=== PATIENT | male | born 1935 | race Hispanic/Latino ===

== ENCOUNTER 2018-05-07 23:44 | Emergency (ER) | payer MEDICARE ==
[2018-05-07 23:50] VITALS: BMI 23.6
[2018-05-08] VITALS: TEMP 97.8; O2SAT 100
--- NOTE | 2018-05-08 00:11 | ED PDOC ---
Arrival/HPI - General Historian: Patient - History of Present Illness Time/Duration: 1-3 hours Symptom Onset: Sudden Symptom Course: Unchanged Quality: Stabbing Severity Level: 10 <Feliciano Webster - Last Filed: 05/08/18 03:59> <Shelby Lovell - Last Filed: 05/08/18 05:33> - General Chief Complaint: Trauma Time Seen by Provider: 05/08/18 00:03 - History of Present Illness Narrative History of Present Illness (Text): 05/08/18 00:41 Patient is a 83 year old male with PMH of CLL and bradycardia with pacemaker presenting to the ED with left elbow pain after a fall. Patient states that he missed a step going back to his car and fell on his left elbow and face. Patient states that he did not hit his head and his daughter who was right behind him also said he did not hit his head. He describes the elbow pain to be sharp, 10/10, and non-radiating. It is worse with movement and better when he does not move his arm. Patient also complains of pain on his nose. Patient is currently on eliquis. Patient denies headaches, changes in vision, neurological deficits, chest pain, shortness of breath, abdominal pain, or urinary symptoms. (Feliciano Webster) Past Medical History - Provider Review Nursing Documentation Reviewed: Yes - Travel History Have you recently traveled outside [place] w/in the past 3 mons?: No - Tetanus Immunization Tetanus Immunization: Unknown - Cardiac Hx Cardiac Disorders: Yes Hx Pacemaker: Yes (PT INSTRUCTED TO BRING HIS CARD WITH HIM) - Pulmonary Hx Respiratory Disorders: No - Neurological Hx Paralysis: No - HEENT Hx HEENT Disorder: No Hx Cataracts: Yes (b/l sx) - Renal Hx Renal Disorder: No - Endocrine/Metabolic Hx Endocrine Disorders: No - Hematological/Oncological Hx Blood Transfusions: Yes Hx Blood Transfusion Reaction: No - Integumentary Hx Dermatological Disorder: No - Musculoskeletal/Rheumatological Hx Musculoskeletal Disorders: No - Gastrointestinal Hx Gastrointestinal Disorders: No - Genitourinary/Gynecological Hx Genitourinary Disorders: Yes Hx Hematuria: Yes (S/P TURP) Hx Prostate Problems: Yes (BPH) Other/Comment: turp/ bladder stones - Psychiatric Hx Emotional Abuse: No Hx Physical Abuse: No Hx Substance Use: No - Surgical History Other/Comment: LYMPH NODE CA. SKIN GRAFTS - Anesthesia Hx Anesthesia Reactions: No Hx Malignant Hyperthermia: No - Suicidal Assessment Feels Threatened In Home Enviroment: No <Feliciano Webster - Last Filed: 05/08/18 03:59> Family/Social History - Physician Review Nursing Documentation Reviewed: Yes Family/Social History: No Known Family HX Smoking Status: Former Smoker Hx Alcohol Use: No Hx Substance Use: No <Orly Websteranni - Last Filed: 05/08/18 03:59> Allergies/Home Meds <Lana Websteri - Last Filed: 05/08/18 03:59> <Shelby Lovell - Last Filed: 05/08/18 05:33> Allergies/Adverse Reactions: Allergies No Known Allergies Allergy (Verified 05/07/18 23:48) Home Medications: Home Meds Medication Instructions Recorded Confirmed Tamsulosin [Flomax] 0.4 mg PO DAILY 10/05/12 05/07/18 Ferrous Sulfate [Feosol] 324 mg PO DAILY 05/31/15 05/07/18 Metoprolol Tartrate [Lopressor] 12.5 mg PO BID 05/31/15 05/07/18 Pantoprazole [Protonix EC Tab] 40 mg PO DAILY 05/31/15 05/07/18 Cholecalciferol (Vitamin D3) 2,000 cap PO DAILY 05/01/16 05/07/18 [Vitamin D3] metOLazone [Zaroxolyn] 2.5 mg PO MWF 05/01/16 05/07/18 Apixaban [Eliquis] 2.5 mg PO BID 11/02/16 05/07/18 Review of Systems - Review of Systems Constitutional: Normal. absent: Fevers, Night Sweats Eyes: Normal. absent: Vision Changes, Eye Pain ENT: Epistaxis (Nose pain s/p fall) Respiratory: Normal. absent: SOB, Cough, Wheezing Cardiovascular: Normal. absent: Chest Pain, Palpitations Gastrointestinal: Normal. absent: Abdominal Pain, Constipation, Diarrhea, Nausea, Vomiting Genitourinary Male: Normal Musculoskeletal: Other (10/10 left elbow pain) Skin: Skin Lesions (Lesions seen on his nose). absent: Rash, Pruritis Neurological: Normal. absent: Headache, Dizziness, Focal Weakness, Gait Changes Psychiatric: Normal. absent: Anxiety, Depression <Feliciano Webster - Last Filed: 05/08/18 03:59> - Physician Review All systems were reviewed & negative as marked: Yes <TeaShelby dunn - Last Filed: 05/08/18 05:33> Physical Exam Vital Signs Reviewed: Yes Temperature: Afebrile Blood Pressure: Normal Pulse: Regular Respiratory Rate: Normal Appearance: Positive for: Well-Appearing, Comfortable, Other. No: Non-Toxic Pain Distress: Severe (Left elbow pain) Mental Status: Positive for: Alert and Oriented X 3 - Systems Exam Head: Present: Atraumatic, Normocephalic. No: Tenderness Pupils: Present: PERRL Extroacular Muscles: Present: EOMI Conjunctiva: Present: Normal Mouth: Present: Moist Mucous Membranes Nose (External): Present: Abrasion Respiratory/Chest: Present: Clear to Auscultation. No: Respiratory Distress, Accessory Muscle Use, Wheezes, Decreased Breath Sounds, Rales, Rhonchi Cardiovascular: Present: Regular Rate and Rhythm, Normal S1, S2. No: Murmurs, Rub, Gallop Abdomen: Present: Normal Bowel Sounds. No: Tenderness, Distention, Peritoneal Signs Upper Extremity: Present: NORMAL PULSES, Tenderness (Patient unable to move left arm due to pain), Capillary Refill < 2s. No: Normal Inspection, Cyanosis, Edema, Normal ROM, Erythema Lower Extremity: Present: Normal Inspection, Edema (+1 pitting edema). No: CALF TENDERNESS Neurological: Present: GCS=15, CN II-XII Intact, Speech Normal, Motor Func Grossly Intact, Normal Sensory Function Skin: Present: Warm, Dry, Normal Color. No: Rashes Psychiatric: Present: Alert, Oriented x 3, Normal Insight, Normal Concentration <Feliciano Webster - Last Filed: 05/08/18 03:59> Vital Signs Temp Pulse Resp BP Pulse Ox 05/08/18 04:37 65 17 127/70 100 05/07/18 23:59 97.8 F 71 18 149/79 100 Medical Decision Making <Feliciano Webster - Last Filed: 05/08/18 03:59> <Shelby Lovell Maximiliano - Last Filed: 05/08/18 05:33> ED Course and Treatment: 05/08/18 00:12 Impression: Patient is a 83 year old male presenting to the ED with left elbow pain and laceration on nose s/p fall. Differential Diagnosis included but are not limited to: - Left arm fracture - Facial trauma Plan: -- Left elbow, humerus, forearm xray -- CT maxillofacial -- Tylenol -- Percocet -- Long arm posterior splint Progress Notes: 05/08/18 00:53 - Patient examined, complaining of 10/10 left elbow pain. Ordered tylenol. Continue placing ice pack on elbow. 05/08/18 02:40 - CT maxillofacial showed no acute findings - Left humerus Xray showed: Transverse supracondylar fracture noted extending from the lateral to the medial supracondylar region. No significant displacement. Subtle contour irregularity at the anterior aspect of the radius may reflect a nondisplaced hairline radial head fracture. - Reassessed patient, still complaining of pain. Ordered percocet. 05/08/18 03:00 - Pending call from Orthopedics, Dr. Colby. 05/08/18 03:30 - Dr. Colby recommended long arm posterior splint, sling, and follow up in 1 week. 4:00 - Splint put on left arm. - Patient is stable for discharge (Feliciano Webster) Patient Seen With Resident: In agreement with resident note which contains more details about the patient. Patient was seen and evaluated with resident. Came up with plan and treatment together. 83 year old male presents complaining of left elbow pain s/p fall walking to his car. Patient also hit his face. Plan: -- CT Maxillofacial w/o contrast -- percocet, Tylenol -- Left elbow 3v x-ray -- Left forearm x-ray -- Left humerus x-ray -- Reassess and disposition (Shelby Lovell) - RAD Interpretation Radiology Orders: 05/08/18 00:33 ELBOW LEFT 3 VIEWS ROUTINE [RAD] Stat 05/08/18 00:34 HUMERUS LT FALL PROTOCOL [RAD] Stat 05/08/18 00:36 MAXILLOFACIAL W/O CONTRAST [CT] Stat 05/08/18 00:38 FOREARM LEFT [RAD] Stat - Medication Orders Current Medication Orders: Discontinued Medications Acetaminophen (Tylenol 325mg Tab) 650 mg PO STAT STA Stop: 05/08/18 00:40 Last Admin: 05/08/18 00:52 Dose: 650 mg MAR Pain/Vitals Document 05/08/18 00:52 RD (Rec: 05/08/18 00:52 RD [id number]) Pain Reassessment Is This A Pain ReAssessment? No Sleep Is patient sleeping during reassessment? No Presence of Pain Presence of Pain Yes Location Left, Right or Bilateral Left Pain Location Body Site Arm Oxycodone/Acetaminophen (Percocet 5/325 Mg Tab) 1 tab PO STAT STA Stop: 05/08/18 02:43 Last Admin: 05/08/18 03:00 Dose: 1 tab MAR Pain Assessment Document 05/08/18 03:00 RD (Rec: 05/08/18 03:01 RD [id number]) Pain Reassessment Is this a pain reassessment? Yes Sleep Is patient sleeping during reassessment? No Presence of Pain Presence of Pain Yes <Feliciano Webster - Last Filed: 05/08/18 03:59> - PA / [employer] / Resident Statement MD/DO has reviewed & agrees with the documentation as recorded. MD/DO has examined the patient and agrees with the treatment plan. - Scribe Statement The provider has reviewed the documentation as recorded by the Scribe <Shelby Lovell - Last Filed: 05/08/18 05:33> - Scribe Statement Dori Adair Provider Scribe Attestation: All medical record entries made by the Scribe were at my direction and personally dictated by me. I have reviewed the chart and agree that the record accurately reflects my personal performance of the history, physical exam, medical decision making, and the department course for this patient. I have also personally directed, reviewed, and agree with the discharge instructions and disposition. (Shelby Lovell) Disposition/Present on Arrival - Present on Arrival Any Indicators Present on Arrival: No History of DVT/PE: No History of Uncontrolled Diabetes: No Urinary Catheter: No History of Decub. Ulcer: No History Surgical Site Infection Following: None - Disposition Have Diagnosis and Disposition been Completed?: Yes Disposition Time: 04:20 Patient Plan: Discharge <Feliciano Webster - Last Filed: 05/08/18 03:59> <Shelby Lovell - Last Filed: 05/08/18 05:33> - Disposition Diagnosis: Arm fracture, left Disposition: HOME/ ROUTINE Condition: IMPROVED Discharge Instructions (ExitCare): Cast Care, Upper Arm Fracture Additional Instructions: LAZARO BOWENS, thank you for letting us take care of you today. Your provider was Shelby Lovell MD and you were treated for left arm fracture. The emergency medical care you received today was directed at your acute symptoms. If you were prescribed any medication, please fill it and take as directed. It may take several days for your symptoms to resolve. Return to the Emergency Department if your symptoms worsen, do not improve, or if you have any other problems. Please contact your doctor or call one of the physicians/clinics you have been referred to that are listed on the Patient Visit Information form that is included in your discharge packet. Bring any paperwork you were given at discharge with you along with any medications you are taking to your follow up visit. Our treatment cannot replace ongoing medical care by a primary care provider outside of the emergency department. Thank you for allowing the [facility] team to be part of your care today. Please follow up with Orthopedics, Dr. Colby in 1 week. Prescriptions: oxyCODONE/Acetaminophen [Percocet 5/325 mg Tab] 1 ea PO Q6H PRN #8 tab PRN Reason: Pain, Severe (8-10) Referrals: Anam Colby MD [Staff Provider] - Follow up with primary Forms: [employer] ([employer])
[2018-05-08] MEDS ORDERED: Oxycodone/Acetaminophen 5/325 mg Tab PO STA (02:42)
[2018-05-08 04:38] VITALS: BP 127/70; PULSE 65; RESP 17
--- NOTE | 2018-05-08 08:52 | CT ---
Date of service: 05/08/18 CT maxillofacial bones without IV contrast Indication: Fall Comparison: None available Technique: Axial computed tomography images were obtained of the maxillofacial bones without the use of intravenous contrast. Coronal and sagittal reformatted images were generated and reviewed. This CT exam was performed using 1 or more of the following dose reduction techniques: Automated exposure control, adjustment of the MAA and/or kV according to patient size, and/or use of iterative reconstruction technique. Radiation dose: Total exam DLP = 893.53 mGy-cm. Findings: Osseous demineralization. Degenerative changes. The facial bones appear intact without acute displaced fracture. The orbits appear unremarkable. Prominent scattered lymph nodes (sub cm in short axis) bilaterally throughout the neck, nonspecific. Carotid artery calcifications noted bilaterally. Limited visualized brain demonstrates nonspecific scattered parenchymal calcifications ; correlate for prior infection. The paranasal sinuses appear clear. Impression: No acute fracture identified. Enlarged prominent bilateral lymph nodes throughout the neck (Sub cm in short axis). This finding is nonspecific. If indicated suggest further evaluation with CT soft tissue neck. Preliminary impression was provided by virtual radiologic. Study marked for PA review.
--- NOTE | 2018-05-08 10:23 | RAD ---
Date of service: 05/08/18 Left forearm radiographs Left elbow radiographs Left humerus radiographs Indication: Fall Comparison: None available Findings: Transverse supracondylar fracture identified extending from the lateral to the medial supracondylar region. Suspect nondisplaced radial head fracture due to subtle contour irregularity involving the anterior aspect of the radius. No dislocation. Soft tissue swelling. No evidence of radiopaque foreign body. Partially imaged cardiac pacer. Impression: Transverse supracondylar left humeral fracture. Preliminary impression was provided by virtual radiologic.
== END 2018-05-08 04:37 | disposition home or self-care (01) ==
LOC: ED 23:44
DX: S42.412A Displaced simple supracondylar fracture without intercondylar fracture of left humerus, initial encounter for closed fracture (principal); W10.9XXA Fall (on) (from) unspecified stairs and steps, initial encounter; Z87.891 Personal history of nicotine dependence

== ENCOUNTER 2018-10-24 12:09 | Outpatient (CLI) | payer MEDICARE | END 2018-10-24 12:10 | disposition home or self-care (01) | LOC: OPLAB 12:09 ==

== ENCOUNTER 2018-11-21 13:09 | Outpatient (CLI) | payer MEDICARE | END 2018-11-21 13:10 | disposition home or self-care (01) | LOC: OPLAB 13:09 ==

== ENCOUNTER 2018-12-26 12:52 | Outpatient (CLI) | payer MEDICARE | END 2018-12-26 12:53 | disposition home or self-care (01) | LOC: OPLAB 12:52 ==

== ENCOUNTER 2019-01-23 12:52 | Outpatient (CLI) | payer MEDICARE | END 2019-01-23 12:53 | disposition home or self-care (01) | LOC: OPLAB 12:52 ==